=== PATIENT | female | born 1965 | race Caucasian/White ===

== ENCOUNTER 2024-07-07 00:45 | Emergency (ER) | payer BC ==
[2024-07-07] MEDS: Ondansetron 4 MG Tab.DIS PO ONE ×2 (01:11→01:57)
[2024-07-07] MEDS: Ketorolac 30 MG/ML SDV IM ONE (01:27)
[2024-07-07] MEDS: Acetaminophen 500 MG Tab PO ONE (01:42)
[2024-07-07] MEDS: Azithromycin 250 MG Tab PO ONE (02:16)
== END 2024-07-07 02:23 | disposition home or self-care (01) ==
LOC: KA.ED 00:45
DX: J18.9 Pneumonia, unspecified organism (principal); R11.0 Nausea
CPT/HCPCS: 87428; 96372; 99284; A9270; J1885